=== PATIENT | female | born 1995 | race African-American/Black ===

== ENCOUNTER 2022-05-22 10:39 | Emergency (ER) | payer SELFPAY ==
[2022-05-22 11:31] LABS: #Eosinphils 0.1 thou/uL (0.0-0.7); #Lymphocytes 2.4 thou/uL (1.20-3.40); #Monocytes 0.5 thou/uL (0.11-0.59); %Basophils 0.1 % (0.0-1.0); %Eosinophils 1.1 % (0.0-10.0); %Lymphocytes 34.1 % (21.0-51.0); %Monocytes 6.9 % (0.0-10.0); %Neutrophils 57.8 % (42.0-75.0); Hemoglobin 8.5 g/dL (12.0-16.0); Mean Corpuscular HGB CONC 28.4 g/dL (32.0-36.0); Mean Corpuscular Hemoglobin 18.3 pg (27.0-31.0); Mean Corpuscular Volume 64.4 fl (78.0-98.0); Mean Platelet Volume 6.7 fL (7.4-10.4); Platelet Count 292 10x3/uL (130-400); Red Blood Cell (RBC) Count 4.63 mill/uL (4.20-5.40)
[2022-05-22 11:43] LABS: BHCG - Serum Negative (NEGATIVE); Pregs Control Background? CLEAR/WHITE (CLR/WHITE); Pregs Control Bar Appear? YES (CONTROL BAR)
[2022-05-22 11:45] LABS: Reflex for Review?? YES
[2022-05-22 11:51] LABS: ALT (SGPT) 13 U/L (8-55); AST (SGOT) 19 U/L (5-34); Albumin 4.4 g/dL (3.5-5.0); Alkaline Phosphatase 43 U/L (40-110); Anion Gap 12 mmol/L (10-20); BUN (Urea Nitrogen) 10 mg/dL (7.0-18.7); Bilirubin, Total 0.8 mg/dL (0.2-1.2); Calc. Creatinine Clearance 0 mL/min (70-130); Calcium 8.9 mg/dL (7.8-10.44); Carbon Dioxide 23 mmol/L (22-29); Chloride 105 mmol/L (98-107); Estimated GFR 122; Globulin 2.9 g/dL (2.4-3.5); Glucose 83 mg/dL (70-105); Lipase 28 U/L (8-78); Potassium 4.1 mmol/L (3.5-5.1); Protein, Total 7.3 g/dL (6.0-8.3); Sodium 136 mmol/L (136-145)
[2022-05-22 11:59] LABS: Hypochromia MODERATE=16-30 cells (100X) (0-5/hpf); MDiff Complete? YES; Microcytosis MODERATE=15-30 cells (100X) (0-5/hpf); Ovalocytes SLIGHT = 2-5 cells (100X) (0-1/hpf); Polychromasia SLIGHT = 2-3 cells (100X) (0-2/hpf); Schistocytes SLIGHT = 2-5 cells (100X) (0-1/hpf); Target Cells SLIGHT = 2-5 cells (100X) (0-1/hpf)
[2022-05-22 12:50] LABS: Bacteria/HPF None Seen HPF (None Seen); Bilirubin Negative (Negative); Blood, Urine 2+ (Negative); Clarity Clear (Clear); Glucose, Urine (Dipstick) Normal (Negative); Ketone, Urine Negative (Negative); Leukocyte 75 Leu/uL (Negative); Nitrite Negative (Negative); Protein, Urine (Dipstick) Negative (Neg-Trace); RBC/HPF 0-3 HPF (0-3); Specific Gravity, Urine 1.027 (1.002-1.036); Squamous Epithelial 0-3 HPF (0-3); Urobilinogen Normal mg/dL (Less than 2); WBC/HPF 0-3 HPF (0-3)
[2022-05-22] MEDS ORDERED: Acetaminophen 500 MG TAB ONE (13:15)
[2022-05-22] MEDS ORDERED: Ibuprofen 200 MG TAB ONE (13:15)
== END 2022-05-22 13:20 | disposition home or self-care (01) ==
LOC: ERS 10:39
DX: R07.9 Chest pain, unspecified (principal)
CPT/HCPCS: 36415; 71045; 81003; 81015; 83690; 84703; 85060; 93005